=== PATIENT | female | born 1950 | race Caucasian/White ===

== ENCOUNTER 2017-03-05 14:01 | Emergency (ER) | payer BC ==
[2017-03-05 14:29] VITALS: BP 147/75; PULSE 78; RESP 16; TEMP 98.1; O2SAT 97
--- NOTE | 2017-03-05 15:34 | EDPHY ---
H & P Stated Complaint: Left shoulder pain for 5 days - getting worse. HPI/ROS: CHIEF COMPLAINT: "I can't move my shoulder" HISTORY OF PRESENT ILLNESS: The patient is a 66 y/o female arriving with her family complaining of left shoulder pain for the last 5 days. She has remote history of "tearing stuff" in her shoulder when reaching quickly for a falling item. She completed PT and had a few cortisone shots for this. They did not recommend surgery. She has had occasional pain in her shoulder and the most recent episode one month ago was mild and resolved spontaneously. Today, her pain is localized to the superior aspect of her left shoulder and significantly affects her range of motion. She cannot identify any obvious preceding event or trauma. She noticed it while [place] the airport [place]. She denies associated neck pain or pain anywhere else. No weakness or paresthesias. No recent illness. She has been using Tylenol and naproxen for pain with minimal improvement. REVIEW OF SYSTEMS: A ten point review of systems was performed and is negative with the exception of the items mentioned in the HPI. Past medical history: Denies Past surgical history: Denies Family history: Noncontributory Social history: Family at bedside. . Nonsmoker. Visiting from [place]. General Appearance: Alert. Vital signs reviewed. 147/75. Eyes: Pupils equal and round, no conjunctival injection, no discharge. Anicteric. Respiratory: Lungs are clear to auscultation; no wheezes, rales, or rhonchi. Cardiovascular: Regular rate and rhythm; no murmur, rub, or gallop. Skin: Warm and dry, no rashes on exposed skin, normal color. Back: Nontender to palpation over the thoracolumbar spine. No CVAT. Extremities: No lower extremity edema, no calf tenderness or swelling. Symmetric shoulders. Discreet tenderness over left AC joint. Neurological: Alert and oriented. Pain with abduction and flexion/extension limiting ROM of left shoulder. She is unable to lift her left arm over her head due to pain. Sensation intact to light touch over both UEs. Pulse: 2+ left radial pulse. Psychiatric: Normal affect. - Personal History Current Tetanus Diphtheria and Acellular Pertussis (TDAP): Yes - Medical/Surgical History Hx Asthma: No Hx Chronic Respiratory Disease: No Hx Diabetes: No Hx Cardiac Disease: No Hx Renal Disease: No Hx Cirrhosis: No Hx Alcoholism: No Hx HIV/AIDS: No Hx Splenectomy or Spleen Trauma: No Other PMH: Denies - Social History Smoking Status: Never smoked Constitutional: Initial Vital Signs Temperature (C) 36.7 C 03/05/17 14:26 Heart Rate 78 03/05/17 14:26 Respiratory Rate 16 03/05/17 14:26 Blood Pressure 147/75 H 03/05/17 14:26 O2 Sat (%) 97 03/05/17 14:26 O2 Delivery Mode Room Air Allergies/Adverse Reactions: clindamycin Allergy (Verified 03/05/17 14:29) gentamicin Allergy (Verified 03/05/17 14:30) Home Medications: Medication Instructions Recorded Lidocaine 5% [Lidoderm 5% Patch 1 ea TD DAILY #4 patch 03/05/17 (*)] Medical Decision Making - Diagnostics Imaging Results: Imaging Impressions Shoulder X-Ray 03/05/17 14:52 Impression: Calcific tendinitis. It would be worthwhile to check the patient's blood work for a hypercalcemic state. Consider obtaining a consultation with Dr. Williamson or Dr. Dang of our Imaging Department Musculoskeletal Section to consider ultrasound-guided lavage of the large calcium deposits. Contact information- Jack Williamson M.D.: . Jc Dang M.D.: [phone]. Imaging: I viewed and interpreted images myself ED Course/Re-evaluation: This is a 66 y/o female with a history of intermittent chronic left shoulder pain who presents with a 5-day history of severe shoulder pain that is limiting her range of motion. She is neurovascularly intact. She has point tenderness over her left AC joint and her ROM is limited by pain. X-ray does not show acute fracture--calcific tendinitis noted. Plan to treat with Tylenol and lidocaine patch here. I spoke with the local orthopedic urgent care and our on- call orthopedist concerning options for steroid injections, but since the patient does not have an existing relationship with an orthopedist here they are unable to do this type of injection in an acute setting. I discussed this with the patient and recommended following up with her orthopedist upon her return home in 2 days. She declined narcotic pain medication. She agrees with plan. Danger signs reviewed. Differential Diagnosis: I considered a differential diagnosis that includes but is not limited to fracture, dislocation, sprain, rotator cuff injury, calcific tendinitis, and frozen shoulder. - Data Points Medications Given: Discontinued Medications Lidocaine (Lidoderm 5%) 1 ea TD EDNOW ONE Stop: 03/05/17 15:54 Last Admin: 03/05/17 15:57 Dose: 1 ea Departure - Departure Disposition: Home, Routine, Self-Care Clinical Impression: Left shoulder pain Qualifiers: Chronicity: chronic Qualified Code(s): M25.512 - Pain in left shoulder Condition: Good Instructions: Shoulder Pain (ED) Additional Instructions: 1. Take 650mg of Tylenol every 4-6 hours for pain over the next few days. Do not exceed 3000mg in a 24 hour period. 2. Apply lidocaine patches as directed to the site. These can stay in place for up to 12 hours. 3. Follow up with your orthopedist upon your return home. I recommend calling first thing Monday morning to schedule an appointment. You've also been referred to Dr. Holland, orthopedist, locally if needed. Bring the CD of your x- ray images with you to that appointment. 4. Return to the ED for worsening of condition. Referrals: DOROTHY CONSTANTINO [Other] - As per Instructions Camilo Holland MD [Medical Doctor] - As per Instructions Prescriptions: Lidocaine 5% [Lidoderm 5% Patch (*)] 1 ea TD DAILY #4 patch Report Scribed for: Kimberly Roque Report Scribed by: Jocelin Galarza Date of Report: 03/05/17 Time of Report: 15:49 Physician Review and Approval Statement: 03/05/17 15:34 Portions of this note were transcribed by the medical malpractice paralegal. I, Dr. Kimberly Roque, personally performed the history, physical exam, and medical decision- making; and confirmed the accuracy of the information in the transcribed note.
[2017-03-05] MEDS ORDERED: LIDOCAINE 5% 1 EA PATCH TD ONE (15:53)
[2017-03-05] MEDS ORDERED: PATCH REMOVAL 1 EA PATCH TD SCH (21:00)
== END 2017-03-05 16:35 | disposition home or self-care (01) ==
DX: M25.512 Pain in left shoulder (principal)
CPT/HCPCS: A4565